=== PATIENT | male | born 1965 | race Caucasian/White ===

== ENCOUNTER 2017-04-14 16:45 | Inpatient (IN) | payer MEDICARE, OTHER ==
[~2017-04-14] VITALS: Ht 177.8 cm; Wt 72.8 kg
[~2017-04-14 16:45] MED LIST: DIGO250T4 PO; INSU100C10 SQ; LANTUS SQ; SPIR25TA3 PO
[2017-04-14] MEDS ORDERED: vancomycin/NS 1 GM ADD-VANTAGE 250 ML IV ONE (17:00)
[2017-04-14] MEDS ORDERED: normal saline 1000ML IV soln IV ONE (17:00)
[2017-04-14] MEDS ORDERED: CefTRIAXone 2gm/NS 100ml IVPB 100 ML IV ONE (17:00)
[2017-04-14 17:19] LABS: BASOPHILS % (AUTO) 0 % (0-1); EOSINOPHILS % (AUTO) 0 % (0-6); HEMATOCRIT 42.2 % (42.0-52.0); HEMOGLOBIN 13.6 g/dl (14.0-17.9); LYMPHOCYTES # (AUTO) 0.5 X10'3 (1.1-4.8); LYMPHOCYTES % (AUTO) 1.4 % (21-51); MEAN CORPUSCULAR HEMOGLOBIN 29.7 PG (27.0-31.0); MEAN CORPUSCULAR HGB CONC 32.2 % (33.0-36.5); MEAN CORPUSCULAR VOLUME 92.2 FL (78-98); MEAN PLATELET VOLUME 7.9 FL (7.4-10.4); MONOCYTES # (AUTO) 0.1 X10'3 (0-0.9); MONOCYTES % (AUTO) 0.3 % (2-12); NEUTROPHILS # (AUTO) 35.9 X10'3 (1.8-7.7); NEUTROPHILS % (AUTO) 98.3 % (42-75); PLATELET COUNT 567 X10'3 (140-440); RED BLOOD COUNT 4.58 X10'6 (4.70-6.10); RED CELL DISTRIBUTION WIDTH 14.4 % (11.5-14.5)
[2017-04-14 17:24] LABS: WHITE BLOOD COUNT 36.5 X10'3 (4.5-11.0)
[2017-04-14 17:29] LABS: INR 1.1 INR; PARTIAL THROMBOPLASTIN TIME 48 SECONDS (22-32); PROTHROMBIN TIME 11.7 SECONDS (9.0-12.0)
[2017-04-14 17:44] LABS: PLATELET ESTIMATE INCREASED; TOTAL CELLS COUNTED 100; TOXIC GRANULATION 1+; TOXIC VACUOLATION 1+
[2017-04-14 18:04] LABS: ALANINE AMINOTRANSFERASE 30 U/L (12-78); ALBUMIN/GLOBULIN RATIO 0.3 (1.1-1.5); ALKALINE PHOSPHATASE 211 IU/L (46-116); ANION GAP 29 (8-16); ASPARTATE AMINO TRANSFERASE 19 U/L (10-37); BILIRUBIN,TOTAL 0.5 MG/DL (0.1-1.0); BLOOD UREA NITROGEN 31 MG/DL (7-18); BUN/CREATININE RATIO 23.8 (5.4-32.0); CALCIUM 8.9 MG/DL (8.5-10.1); CHLORIDE 85 MMOL/L (99-107); MAGNESIUM 1.9 MG/DL (1.5-2.4); POTASSIUM 3.2 MMOL/L (3.5-5.1); SODIUM 122 MMOL/L (135-145); TOTAL PROTEIN 7.8 G/DL (6.4-8.2); eGFR 58 ML/MIN
[2017-04-14 18:08] LABS: GLUCOSE 562 MG/DL (70-104)
[2017-04-14 18:09] LABS: TOTAL CARBON DIOXIDE 8.4 MMOL/L (24-32)
[2017-04-14] MEDS ORDERED: iohexol 300mg/ml 100ml inj. ONE (18:13)
[2017-04-14] MEDS ORDERED: insulin regular, human 100 UNIT in normal saline 100ml IV soln 100 ML IV PRN ×2 (19:00)
[2017-04-14] MEDS ORDERED: potassium CL 20mEq in D5-1/2NS 1,000 ML IV PRN (19:19)
[2017-04-14] MEDS: normal saline 1000ml 1,000 ML IV SCH ×3 (19:19→23:00)
[2017-04-14] MEDS ORDERED: insulin regular, DKA only 100 UNIT in normal saline 100ml IV soln 99 ML IV SCH ×2 (19:19)
[2017-04-14] MEDS ORDERED: magnesium hydroxide 30ml (MOM) UD suspension PO PRN (19:20)
[2017-04-14] MEDS ORDERED: Neutra Phos packet PO PRN (19:20)
[2017-04-14] MEDS ORDERED: sodium phosphate inj. 15 MMOL in dextrose 5%-water 150 ML IV PRN (19:20)
[2017-04-14] MEDS ORDERED: mag hydrox/Alum hydrox/simeth 30ml oral suspension PO PRN (19:20)
[2017-04-14] MEDS ORDERED: sodium phosphate inj. 30 MMOL in dextrose 5%-water 250 ML IV PRN (19:20)
[2017-04-14] MEDS ORDERED: acetaminophen 325mg tablet PO PRN (19:20)
[2017-04-14] MEDS ORDERED: ondansetron/PF 4mg/2ml inj IV PRN ×2 (19:20→20:50)
[2017-04-14] MEDS ORDERED: magnesium 4gm in 100ml NS 100 ML IV PRN (19:20)
[2017-04-14] MEDS ORDERED: magnesium 2GM in 50ml NS 50 ML IV PRN (19:20)
[2017-04-14] MEDS: nicotine 14mg patch - 24hr TD SCH (19:20)
[2017-04-14] MEDS ORDERED: potassium Cl 20 mEq SR tablet PO PRN ×2 (19:20)
[2017-04-14] MEDS ORDERED: magnesium Cl slow-release 64mg tablet PO PRN (19:20)
[2017-04-14] MEDS ORDERED: potassium Cl 40MEQ/NS 500ml 500 ML IV PRN ×2 (19:20)
[2017-04-14] MEDS ORDERED: vancomycin 1,000mg inj ONE (19:37)
[2017-04-14] MEDS ORDERED: BUPIVAcaine/PF 2.5 mg/ml (0.25%) 30ml vial ONE (19:38)
[2017-04-14] MEDS ORDERED: LORazepam 2 mg/ml vial IV PRN (19:45)
[2017-04-14] MEDS ORDERED: CEFEPIME 1 GM in NORMAL SALINE 100ml IV.SOLN IV SCH (20:00)
[2017-04-14] MEDS ORDERED: cefepime 2gm inj IV SCH (20:00)
[2017-04-14] MEDS ORDERED: fentaNYL/PF 50MCG/1 ML 2ML syringe ONE ×2 (20:10→21:22)
[2017-04-14] MEDS ORDERED: potassium Cl 40MEQ/250ML bag 250 ML IV ONE (20:10)
[2017-04-14] MEDS ORDERED: propofol inj 20 ML IV ONE (20:11)
[2017-04-14] MEDS ORDERED: rocuronium 10mg/ml inj IV ONE (20:11)
[2017-04-14] MEDS ORDERED: sevoflurane 250ml liquid IH ONE (20:11)
[2017-04-14 20:21] LABS: ALBUMIN 1.4 G/DL (3.4-5.0); ANION GAP 26 (8-16); BLOOD UREA NITROGEN 28 MG/DL (7-18); BUN/CREATININE RATIO 25.5 (5.4-32.0); CALCIUM 7.2 MG/DL (8.5-10.1); CHLORIDE 94 MMOL/L (99-107); PHOSPHORUS 3.7 MG/DL (2.3-4.5); SODIUM 127 MMOL/L (135-145); eGFR 70 ML/MIN
[2017-04-14 20:28] LABS: GLUCOSE 483 MG/DL (70-104)
[2017-04-14] MEDS ORDERED: ePHEDrine 50MG/ML INJ. ONE (20:39)
[2017-04-14] MEDS ORDERED: normal saline 1000ml 1,000 ML IV ONE (20:46)
[2017-04-14] MEDS ORDERED: fentaNYL/PF 50MCG/1 ML 2ML syringe IV PRN ×2 (20:50→22:25)
[2017-04-14] MEDS ORDERED: temazepam 15mg capsule PO PRN (21:00)
[2017-04-14 22:05] VITALS: BP 106/61
[2017-04-14 22:15] VITALS: BP 119/67
[2017-04-14 22:25] VITALS: BP 124/69
[2017-04-14] MEDS ORDERED: midazolam 2 mg/2 ml injection IV ONE (22:25)
[2017-04-14 22:35] VITALS: BP 123/69
[2017-04-14 22:35] LABS: ISTAT ANION GAP 18 (8-12); ISTAT BUN 27 mg/dL (6-19); ISTAT CL 102 mmol/L (99-107); ISTAT CREATININE 0.5 mg/dL (0.8-1.3); ISTAT GLUCOSE 430 mg/dL (70-104); ISTAT HGB 12.2 g/dl (14.0-18.0); ISTAT Hct 36 %PCV (42-52); ISTAT IONIZED CALCIUM 1.21 mmol/L (1.03-1.32); ISTAT K 3.4 mmol/L (3.5-5.1); ISTAT NA 130 mmol/L (135-145); ISTAT eGFR > 90 ML/MIN
[2017-04-14 22:45] VITALS: BP_SYST 133; BP_SYST 95; BP_DIAS 58; BP_DIAS 70
[2017-04-14 22:45] LABS: ABG BASE EXCESS -25.9 mmol/L (-2.0-3.0); ABG HCO3 5.7 mmol/L (22.0-26.0); ABG OXYGEN SATURATION 99.1 % (95-98); ABG PCO2 (T) 26.6 mmHg (35.0-48.0); ABG PH (T) 6.935 (7.350-7.450); FCOHb 0.3 % (0.5-1.5); FMetHb 0.1 % (0.3-1.12); FO2Hb 98.7 % (94-100); MINUTE VOLUME 8 L/min; PATIENT TEMPERATURE 35.2; PEEP 5 cm H2O; RESPIRATORY RATE 12 b/min; RESPIRATORY RATE (OBSERVED) 15 b/min; TIDAL VOLUME 400 mL
[2017-04-14] MEDS: FENTANYL-0.9 % NACL/PF 100 ML IV PRN (22:48)
[2017-04-14] MEDS: midazolam 100mg in NS 100ml 100 ML IV PRN (22:49)
[2017-04-14 23:00] VITALS: BP 112/71
[2017-04-14] MEDS ORDERED: insulin Lispro (HumaLOG) vial - multi-dose SQ ONE (23:17)
[2017-04-14 23:31] LABS: ISTAT TOTAL CO2 10 mmol/L (24-32)
[2017-04-14 23:38] LABS: ISTAT TCO2 CONFIRMATION 9.7 mmol/l
[2017-04-15] VITALS (25 sets, daily range): BP systolic 76–134; BP diastolic 53–68
[2017-04-15] MEDS ORDERED: NORepinephrine 8mg/ 250ml NS 250 ML IV ONE (00:06)
[2017-04-15] MEDS: NORepinephrine 8mg/ 250ml NS 250 ML IV SCH ×3 (00:18→18:51)
[2017-04-15] MEDS: normal saline 1000ml 1,000 ML IV SCH ×10 (00:37→23:19)
[2017-04-15 02:46] LABS: BASOPHILS # (AUTO) 0.1 X10'3 (0-0.2); BASOPHILS % (AUTO) 0.5 % (0-1); EOSINOPHILS % (AUTO) 0 % (0-6); HEMATOCRIT 32.3 % (42.0-52.0); HEMOGLOBIN 10.6 g/dl (14.0-17.9); LYMPHOCYTES # (AUTO) 0.3 X10'3 (1.1-4.8); MEAN CORPUSCULAR HEMOGLOBIN 29.6 PG (27.0-31.0); MEAN CORPUSCULAR HGB CONC 32.7 % (33.0-36.5); MEAN CORPUSCULAR VOLUME 90.3 FL (78-98); MEAN PLATELET VOLUME 6.9 FL (7.4-10.4); MONOCYTES # (AUTO) 0.2 X10'3 (0-0.9); MONOCYTES % (AUTO) 0.8 % (2-12); NEUTROPHILS # (AUTO) 25.2 X10'3 (1.8-7.7); NEUTROPHILS % (AUTO) 97.7 % (42-75); PLATELET COUNT 483 X10'3 (140-440); RED BLOOD COUNT 3.57 X10'6 (4.70-6.10); RED CELL DISTRIBUTION WIDTH 13.8 % (11.5-14.5)
[2017-04-15 02:50] LABS: WHITE BLOOD COUNT 25.8 X10'3 (4.5-11.0)
[2017-04-15 03:02] LABS: ALANINE AMINOTRANSFERASE 18 U/L (12-78); ALBUMIN 1.3 G/DL (3.4-5.0); ALBUMIN/GLOBULIN RATIO 0.3 (1.1-1.5); ALKALINE PHOSPHATASE 143 IU/L (46-116); ANION GAP 18 (8-16); ASPARTATE AMINO TRANSFERASE 19 U/L (10-37); BILIRUBIN,TOTAL 0.3 MG/DL (0.1-1.0); BLOOD UREA NITROGEN 28 MG/DL (7-18); BUN/CREATININE RATIO 23.3 (5.4-32.0); CALCIUM 6.9 MG/DL (8.5-10.1); CHLORIDE 102 MMOL/L (99-107); GLUCOSE 235 MG/DL (70-104); MAGNESIUM 1.2 MG/DL (1.5-2.4); PHOSPHORUS 1.9 MG/DL (2.3-4.5); SODIUM 132 MMOL/L (135-145); TOTAL PROTEIN 5.3 G/DL (6.4-8.2); eGFR 64 ML/MIN
[2017-04-15 03:04] LABS: POTASSIUM 2.6 MMOL/L (3.5-5.1); TOTAL CARBON DIOXIDE 11.6 MMOL/L (24-32)
[2017-04-15] MEDS ORDERED: potassium Cl 40MEQ/250ML bag 250 ML IV PRN (03:10)
[2017-04-15] MEDS ORDERED: potassium Cl 40MEQ/250ML bag 500 ML IV ONE (03:17)
[2017-04-15] MEDS: potassium Cl 40MEQ/250ML bag 250 ML IV PRN ×4 (03:26→18:51)
[2017-04-15 03:31] LABS: ABG BASE EXCESS -15.3 mmol/L (-2.0-3.0); ABG HCO3 9.9 mmol/L (22.0-26.0); ABG OXYGEN SATURATION 98.2 % (95-98); ABG PH (T) 7.254 (7.350-7.450); ABG PO2 (T) 113.4 mmHg (83-108); FCOHb 0.3 % (0.5-1.5); FMetHb 0.3 % (0.3-1.12); FO2Hb 97.6 % (94-100); MINUTE VOLUME 14 L/min; PATIENT TEMPERATURE 37.5; PEEP 5 cm H2O; RESPIRATORY RATE 24 b/min; RESPIRATORY RATE (OBSERVED) 31 b/min; TIDAL VOLUME 400 mL; TOTAL HEMOGLOBIN 11.3 G/dl (14.0-18.0)
[2017-04-15] MEDS ORDERED: insulin R INFUSION 1 ML IV ONE (05:42)
[2017-04-15 07:13] LABS: BANDS% (MANUAL) 24 % (0-10); MONOCYTES % (MANUAL) 3 % (2-12); NEUTROPHILS % (MANUAL) 70 % (42-75); PLATELET ESTIMATE INCREASED; TOTAL CELLS COUNTED 100
[2017-04-15 07:14] LABS: BURR CELLS 2+; TOXIC VACUOLATION 1+
[2017-04-15 07:16] LABS: METAMYLEOCYTES% (MANUAL) 3 % (0-0)
[2017-04-15] MEDS: K and/or MAG REPLACEMENT MC SCH (08:00)
[2017-04-15] MEDS ORDERED: K and/or MAG REPLACEMENT MC SCH (08:00)
[2017-04-15] MEDS: nicotine 14mg patch - 24hr TD SCH (08:00)
[2017-04-15] MEDS: piperacillin/tazo 3.375gm/50ml 50 ML IV SCH ×3 (08:35→20:35)
[2017-04-15] MEDS: enoxaparin 40mg/0.4ml syringe SUBCUT SCH (09:05)
[2017-04-15] MEDS ORDERED: DEXTROSE 5% IV SCH ×2 (11:20→11:40)
[2017-04-15] MEDS ORDERED: NORMAL SALINE IV SCH ×2 (11:20→11:40)
[2017-04-15] MEDS ORDERED: SODIUM BICARBONATE IV SCH ×2 (11:20→11:40)
[2017-04-15] MEDS ORDERED: DEXTROSE 5% IV PRN (12:00)
[2017-04-15] MEDS ORDERED: 1/2 NORMAL SALINE IV PRN (12:00)
[2017-04-15] MEDS ORDERED: SODIUM BICARBONATE IV PRN (12:00)
[2017-04-15 12:23] LABS: HIV ANTIBODY 1&2 RAPID NON-REACTIVE (Neg)
[2017-04-15 12:32] LABS: PLATELET COUNT 469 X10'3 (140-440)
[2017-04-15 12:48] LABS: PHOSPHORUS 0.9 MG/DL (2.3-4.5)
[2017-04-15 12:49] LABS: D-DIMER 1.93 MG/L FEU (0-0.50); INR 1.1 INR; PARTIAL THROMBOPLASTIN TIME 38 SECONDS (22-32); PROTHROMBIN TIME 11.8 SECONDS (9.0-12.0)
[2017-04-15] MEDS: silver sulfadiazine cream 400gm jar TP SCH (13:00)
[2017-04-15 13:12] LABS: ALBUMIN 1.2 G/DL (3.4-5.0); ANION GAP 12 (8-16); BLOOD UREA NITROGEN 20 MG/DL (7-18); CALCIUM 7.5 MG/DL (8.5-10.1); CHLORIDE 109 MMOL/L (99-107); GLUCOSE 90 MG/DL (70-104); SODIUM 137 MMOL/L (135-145); eGFR 78 ML/MIN
[2017-04-15 13:14] LABS: POTASSIUM 2.9 MMOL/L (3.5-5.1)
[2017-04-15] MEDS: midazolam 100mg in NS 100ml 100 ML IV PRN (14:28)
[2017-04-15] MEDS: FENTANYL-0.9 % NACL/PF 100 ML IV PRN (14:29)
[2017-04-15] MEDS: sodium phosphate inj. 30 MMOL in dextrose 5%-water 250 ML IV PRN (15:27)
[2017-04-15] MEDS ORDERED: sodium bicarbonate (8.4%) inj. 150 MEQ in dextrose 5%-water 1,000 ML IV SCH (16:05)
[2017-04-15] MEDS: cefepime 1GM/NS ADD-VANTAGE 100 ML IV SCH ×2 (16:33→23:24)
[2017-04-15] MEDS: vancomycin/NS 1 GM ADD-VANTAGE 250 ML IV SCH (18:51)
[2017-04-15 20:08] LABS: ANION GAP 15 (8-16); BLOOD UREA NITROGEN 17 MG/DL (7-18); BUN/CREATININE RATIO 24.3 (5.4-32.0); CALCIUM 7.1 MG/DL (8.5-10.1); CHLORIDE 108 MMOL/L (99-107); GLUCOSE 341 MG/DL (70-104); POTASSIUM 3.9 MMOL/L (3.5-5.1); SODIUM 140 MMOL/L (135-145); TOTAL CARBON DIOXIDE 17.1 MMOL/L (24-32); eGFR > 90 ML/MIN
[2017-04-15] MEDS ORDERED: dextrose ORAL solution 15 GM/59 ML bottle PO PRN ×2 (21:05)
[2017-04-15] MEDS ORDERED: MESSAGE TO PHARMACY PO ONE ×2 (21:05→21:10)
[2017-04-15] MEDS ORDERED: glucagon, human recombinant 1mg kit SUBCUT PRN ×2 (21:05→21:10)
[2017-04-15] MEDS ORDERED: dextrose 50%-water 50ml dispensing syringe IV PRN ×4 (21:05→21:10)
[2017-04-15] MEDS: insulin Lispro (HumaLOG) vial - multi-dose SQ SCH (21:46)
[2017-04-15] MEDS: insulin glargine (Lantus) pen - multi-dose SQ SCH (21:47)
[2017-04-16] VITALS (23 sets, daily range): BP systolic 78–128; BP diastolic 42–67
[2017-04-16] MEDS: piperacillin/tazo 3.375gm/50ml 50 ML IV SCH ×4 (02:09→20:39)
[2017-04-16] MEDS: mineral oil/petrolatum ophthal oint EACHEYE SCH ×4 (02:09→20:39)
[2017-04-16] MEDS: insulin Lispro (HumaLOG) vial - multi-dose SQ SCH ×3 (02:17→13:48)
[2017-04-16 02:49] LABS: ALANINE AMINOTRANSFERASE 18 U/L (12-78); ALBUMIN/GLOBULIN RATIO 0.3 (1.1-1.5); ALKALINE PHOSPHATASE 118 IU/L (46-116); ANION GAP 11 (8-16); ASPARTATE AMINO TRANSFERASE 16 U/L (10-37); BASOPHILS % (AUTO) 0 % (0-1); BILIRUBIN,TOTAL 0.2 MG/DL (0.1-1.0); BLOOD UREA NITROGEN 17 MG/DL (7-18); BUN/CREATININE RATIO 21.3 (5.4-32.0); CALCIUM 6.8 MG/DL (8.5-10.1); CHLORIDE 108 MMOL/L (99-107); EOSINOPHILS % (AUTO) 0 % (0-6); GLUCOSE 380 MG/DL (70-104); HEMATOCRIT 28.6 % (42.0-52.0); HEMOGLOBIN 9.9 g/dl (14.0-17.9); LYMPHOCYTES # (AUTO) 0.5 X10'3 (1.1-4.8); LYMPHOCYTES % (AUTO) 2.4 % (21-51); MAGNESIUM 1.4 MG/DL (1.5-2.4); MEAN CORPUSCULAR HEMOGLOBIN 30.5 PG (27.0-31.0); MEAN CORPUSCULAR HGB CONC 34.6 % (33.0-36.5); MEAN CORPUSCULAR VOLUME 88.2 FL (78-98); MEAN PLATELET VOLUME 8.2 FL (7.4-10.4); MONOCYTES # (AUTO) 0.4 X10'3 (0-0.9); MONOCYTES % (AUTO) 1.7 % (2-12); NEUTROPHILS # (AUTO) 20.9 X10'3 (1.8-7.7); NEUTROPHILS % (AUTO) 95.9 % (42-75); PHOSPHORUS 2.1 MG/DL (2.3-4.5); PLATELET COUNT 425 X10'3 (140-440); RED BLOOD COUNT 3.24 X10'6 (4.70-6.10); SODIUM 142 MMOL/L (135-145); TOTAL CARBON DIOXIDE 22.8 MMOL/L (24-32); TOTAL PROTEIN 4.9 G/DL (6.4-8.2); WHITE BLOOD COUNT 21.8 X10'3 (4.5-11.0); eGFR > 90 ML/MIN
[2017-04-16 02:51] LABS: POTASSIUM 2.8 MMOL/L (3.5-5.1)
[2017-04-16] MEDS ORDERED: sodium bicarbonate (8.4%) inj. 100 MEQ in sodium chloride 0.45% 1,000 ML IV SCH (03:15)
[2017-04-16] MEDS: normal saline 1000ml 1,000 ML IV SCH ×8 (03:19→23:19)
[2017-04-16 03:30] LABS: ABG BASE EXCESS -4.2 mmol/L (-2.0-3.0); ABG HCO3 18.8 mmol/L (22.0-26.0); ABG PCO2 (T) 27.5 mmHg (35.0-48.0); ABG PH (T) 7.453 (7.350-7.450); ABG PO2 (T) 87.5 mmHg (83-108); FCOHb 0.3 % (0.5-1.5); FMetHb 0.3 % (0.3-1.12); FO2Hb 96.4 % (94-100); MINUTE VOLUME 11 L/min; PEEP 5 cm H2O; RESPIRATORY RATE 24 b/min; RESPIRATORY RATE (OBSERVED) 24 b/min; TIDAL VOLUME 400 mL; TOTAL HEMOGLOBIN 9.7 G/dl (14.0-18.0)
[2017-04-16] MEDS ORDERED: normal saline 500ml IV soln 500 ML IV ONE (03:30)
[2017-04-16] MEDS ORDERED: potassium Cl 40MEQ/250ML bag 250 ML IV ONE (03:41)
[2017-04-16] MEDS ORDERED: sodium bicarbonate 1 MEQ/1 ml inj ONE (03:42)
[2017-04-16] MEDS ORDERED: potassium Cl 20mEq/100mL bag 0 ML IV ONE (03:44)
[2017-04-16] MEDS: sodium phosphate inj. 15 MMOL in dextrose 5%-water 150 ML IV PRN (04:08)
[2017-04-16] MEDS: potassium Cl 40MEQ/250ML bag 250 ML IV PRN ×3 (04:09→21:35)
[2017-04-16] MEDS: K and/or MAG REPLACEMENT MC SCH (08:00)
[2017-04-16] MEDS: silver sulfadiazine cream 400gm jar TP SCH (09:04)
[2017-04-16] MEDS: sodium phosphate inj. 30 MMOL in dextrose 5%-water 250 ML IV PRN (09:06)
[2017-04-16] MEDS: nicotine 14mg patch - 24hr TD SCH (09:08)
[2017-04-16] MEDS: LACTOBACILLUS RHAMNOSUS GG 15 billion unit sprinkle caps PO SCH (09:08)
[2017-04-16] MEDS: enoxaparin 40mg/0.4ml syringe SUBCUT SCH (09:10)
[2017-04-16] MEDS ORDERED: DEXTROSE 5% IV SCH (11:40)
[2017-04-16] MEDS ORDERED: 1/2 NORMAL SALINE IV SCH (11:40)
[2017-04-16] MEDS ORDERED: SODIUM BICARBONATE IV SCH (11:40)
[2017-04-16] MEDS: metoclopramide 5 mg/ml inj IV SCH ×2 (13:29→20:39)
[2017-04-16] MEDS ORDERED: metoclopramide 5 mg/ml inj IV SCH (14:00)
[2017-04-16 14:32] LABS: ALBUMIN 0.9 G/DL (3.4-5.0); ANION GAP 8 (8-16); BLOOD UREA NITROGEN 13 MG/DL (7-18); BUN/CREATININE RATIO 21.7 (5.4-32.0); CALCIUM 6.8 MG/DL (8.5-10.1); CHLORIDE 110 MMOL/L (99-107); GLUCOSE 185 MG/DL (70-104); MAGNESIUM 2.4 MG/DL (1.5-2.4); PHOSPHORUS 5.1 MG/DL (2.3-4.5); POTASSIUM 3.7 MMOL/L (3.5-5.1); SODIUM 143 MMOL/L (135-145); TOTAL CARBON DIOXIDE 24.7 MMOL/L (24-32); eGFR > 90 ML/MIN
[2017-04-16] MEDS: vancomycin/NS 1 GM ADD-VANTAGE 250 ML IV SCH (17:33)
[2017-04-16] MEDS: NORepinephrine 8mg/ 250ml NS 250 ML IV SCH (19:32)
[2017-04-16] MEDS: insulin glargine (Lantus) pen - multi-dose SQ SCH (20:41)
[2017-04-17] VITALS (24 sets, daily range): BP systolic 89–156; BP diastolic 56–74
[2017-04-17] MEDS: FENTANYL-0.9 % NACL/PF 100 ML IV PRN (00:12)
[2017-04-17] MEDS: midazolam 100mg in NS 100ml 100 ML IV PRN (00:13)
[2017-04-17] MEDS: mineral oil/petrolatum ophthal oint EACHEYE SCH ×4 (02:02→19:54)
[2017-04-17] MEDS: metoclopramide 5 mg/ml inj IV SCH ×4 (02:02→19:54)
[2017-04-17] MEDS: piperacillin/tazo 3.375gm/50ml 50 ML IV SCH ×4 (02:02→19:54)
[2017-04-17] MEDS: normal saline 1000ml 1,000 ML IV SCH ×4 (02:03→16:11)
[2017-04-17 03:40] LABS: ABG BASE EXCESS 1.2 mmol/L (-2.0-3.0); ABG HCO3 23.9 mmol/L (22.0-26.0); ABG OXYGEN SATURATION 95.5 % (95-98); ABG PH (T) 7.516 (7.350-7.450); ABG PO2 (T) 70.2 mmHg (83-108); ALLEN'S TEST Positive; FCOHb 0.3 % (0.5-1.5); FMetHb 0.3 % (0.3-1.12); FO2Hb 94.9 % (94-100); MINUTE VOLUME 9 L/min; PATIENT TEMPERATURE 36.2; PEEP 5 cm H2O; RESPIRATORY RATE 20 b/min; RESPIRATORY RATE (OBSERVED) 20 b/min; TIDAL VOLUME 400 mL; TOTAL HEMOGLOBIN 10.2 G/dl (14.0-18.0)
[2017-04-17 03:52] LABS: BASOPHILS % (AUTO) 0 % (0-1); EOSINOPHILS # (AUTO) 0.3 X10'3 (0-0.9); EOSINOPHILS % (AUTO) 1.6 % (0-6); HEMATOCRIT 27.3 % (42.0-52.0); HEMOGLOBIN 9.2 g/dl (14.0-17.9); LYMPHOCYTES # (AUTO) 0.6 X10'3 (1.1-4.8); LYMPHOCYTES % (AUTO) 3.7 % (21-51); MEAN CORPUSCULAR HEMOGLOBIN 29.8 PG (27.0-31.0); MEAN CORPUSCULAR HGB CONC 33.7 % (33.0-36.5); MEAN CORPUSCULAR VOLUME 88.4 FL (78-98); MEAN PLATELET VOLUME 7.3 FL (7.4-10.4); MONOCYTES # (AUTO) 0.5 X10'3 (0-0.9); MONOCYTES % (AUTO) 2.7 % (2-12); NEUTROPHILS # (AUTO) 15.8 X10'3 (1.8-7.7); PLATELET COUNT 325 X10'3 (140-440); RED BLOOD COUNT 3.09 X10'6 (4.70-6.10); RED CELL DISTRIBUTION WIDTH 14.5 % (11.5-14.5); WHITE BLOOD COUNT 17.1 X10'3 (4.5-11.0)
[2017-04-17 04:21] LABS: ALANINE AMINOTRANSFERASE 18 U/L (12-78); ALBUMIN 0.9 G/DL (3.4-5.0); ALBUMIN/GLOBULIN RATIO 0.2 (1.1-1.5); ALKALINE PHOSPHATASE 106 IU/L (46-116); ANION GAP 8 (8-16); ASPARTATE AMINO TRANSFERASE 13 U/L (10-37); BILIRUBIN,TOTAL 0.2 MG/DL (0.1-1.0); BLOOD UREA NITROGEN 11 MG/DL (7-18); CALCIUM 6.8 MG/DL (8.5-10.1); CHLORIDE 112 MMOL/L (99-107); GLUCOSE 115 MG/DL (70-104); MAGNESIUM 2.1 MG/DL (1.5-2.4); PHOSPHORUS 2.1 MG/DL (2.3-4.5); POTASSIUM 3.2 MMOL/L (3.5-5.1); SODIUM 145 MMOL/L (135-145); TOTAL CARBON DIOXIDE 25.4 MMOL/L (24-32); eGFR > 90 ML/MIN
[2017-04-17 04:52] LABS: TOTAL CELLS COUNTED 100
[2017-04-17 04:53] LABS: ANISOCYTOSIS 1+; PLATELET ESTIMATE NORMAL; TOXIC GRANULATION 1+
[2017-04-17] MEDS: K and/or MAG REPLACEMENT MC SCH (08:00)
[2017-04-17] MEDS ORDERED: vancomycin/NS 1 GM ADD-VANTAGE 250 ML IV SCH (09:00)
[2017-04-17] MEDS: vancomycin inj 1,250 MG in normal saline 250ml IV soln 250 ML IV SCH ×2 (09:00→20:42)
[2017-04-17] MEDS: LACTOBACILLUS RHAMNOSUS GG 15 billion unit sprinkle caps PO SCH (09:08)
[2017-04-17] MEDS: enoxaparin 40mg/0.4ml syringe SUBCUT SCH (09:08)
[2017-04-17] MEDS: nicotine 14mg patch - 24hr TD SCH (09:09)
[2017-04-17] MEDS: NORepinephrine 8mg/ 250ml NS 250 ML IV SCH (09:13)
[2017-04-17] MEDS: silver sulfadiazine cream 400gm jar TP SCH (09:20)
[2017-04-17] MEDS ORDERED: hydrocortisone sod succ/PF 100mg/2ml inj. IV ONE (10:35)
[2017-04-17 13:57] LABS: ALBUMIN 0.8 G/DL (3.4-5.0); ANION GAP 7 (8-16); BLOOD UREA NITROGEN 11 MG/DL (7-18); CALCIUM 6.7 MG/DL (8.5-10.1); CHLORIDE 111 MMOL/L (99-107); GLUCOSE 112 MG/DL (70-104); MAGNESIUM 1.8 MG/DL (1.5-2.4); PHOSPHORUS 2.3 MG/DL (2.3-4.5); SODIUM 144 MMOL/L (135-145); TOTAL CARBON DIOXIDE 26.2 MMOL/L (24-32); eGFR > 90 ML/MIN
[2017-04-17 14:00] LABS: POTASSIUM 2.8 MMOL/L (3.5-5.1)
[2017-04-17] MEDS: hydrocortisone sod succ/PF 100mg/2ml inj. IV SCH ×2 (14:00→19:54)
[2017-04-17] MEDS ORDERED: VANCOMYCIN LEVEL IV ONE (16:30)
[2017-04-17] MEDS: insulin Lispro (HumaLOG) vial - multi-dose SQ SCH (20:01)
[2017-04-17] MEDS: insulin glargine (Lantus) pen - multi-dose SQ SCH (20:06)
[2017-04-17] MEDS: potassium Cl 40MEQ/250ML bag 250 ML IV PRN (20:07)
[2017-04-18] VITALS (24 sets, daily range): BP systolic 70–140; BP diastolic 48–78
[2017-04-18] MEDS: hydrocortisone sod succ/PF 100mg/2ml inj. IV SCH ×4 (01:51→20:25)
[2017-04-18] MEDS: metoclopramide 5 mg/ml inj IV SCH ×4 (01:51→20:25)
[2017-04-18] MEDS: piperacillin/tazo 3.375gm/50ml 50 ML IV SCH ×4 (01:52→20:26)
[2017-04-18] MEDS: mineral oil/petrolatum ophthal oint EACHEYE SCH ×4 (01:52→20:25)
[2017-04-18] MEDS: insulin Lispro (HumaLOG) vial - multi-dose SQ SCH (02:05)
[2017-04-18] MEDS: midazolam 100mg in NS 100ml 100 ML IV PRN (02:35)
[2017-04-18] MEDS: FENTANYL-0.9 % NACL/PF 100 ML IV PRN ×2 (02:35→23:18)
[2017-04-18] MEDS: normal saline 1000ml 1,000 ML IV SCH ×2 (02:36→17:09)
[2017-04-18] MEDS: NORepinephrine 8mg/ 250ml NS 250 ML IV SCH ×2 (02:38→22:25)
[2017-04-18 02:41] LABS: BASOPHILS % (AUTO) 0 % (0-1); EOSINOPHILS % (AUTO) 0 % (0-6); HEMATOCRIT 28.3 % (42.0-52.0); HEMOGLOBIN 9.4 g/dl (14.0-17.9); LYMPHOCYTES # (AUTO) 0.2 X10'3 (1.1-4.8); LYMPHOCYTES % (AUTO) 1.5 % (21-51); MEAN CORPUSCULAR HEMOGLOBIN 29.4 PG (27.0-31.0); MEAN CORPUSCULAR HGB CONC 33.1 % (33.0-36.5); MEAN CORPUSCULAR VOLUME 88.8 FL (78-98); MEAN PLATELET VOLUME 7.5 FL (7.4-10.4); MONOCYTES # (AUTO) 0.2 X10'3 (0-0.9); NEUTROPHILS # (AUTO) 16.4 X10'3 (1.8-7.7); NEUTROPHILS % (AUTO) 97.5 % (42-75); PLATELET COUNT 341 X10'3 (140-440); RED BLOOD COUNT 3.19 X10'6 (4.70-6.10); RED CELL DISTRIBUTION WIDTH 14.7 % (11.5-14.5); WHITE BLOOD COUNT 16.8 X10'3 (4.5-11.0)
[2017-04-18 02:58] LABS: ALANINE AMINOTRANSFERASE 17 U/L (12-78); ALBUMIN 0.9 G/DL (3.4-5.0); ALBUMIN/GLOBULIN RATIO 0.2 (1.1-1.5); ALKALINE PHOSPHATASE 123 IU/L (46-116); ASPARTATE AMINO TRANSFERASE 11 U/L (10-37); BILIRUBIN,TOTAL 0.3 MG/DL (0.1-1.0); BLOOD UREA NITROGEN 18 MG/DL (7-18); CALCIUM 7.3 MG/DL (8.5-10.1); CHLORIDE 109 MMOL/L (99-107); GLUCOSE 221 MG/DL (70-104); MAGNESIUM 1.9 MG/DL (1.5-2.4); PHOSPHORUS 2.5 MG/DL (2.3-4.5); POTASSIUM 3.6 MMOL/L (3.5-5.1); SODIUM 143 MMOL/L (135-145); TOTAL PROTEIN 5.5 G/DL (6.4-8.2); eGFR > 90 ML/MIN
[2017-04-18 03:06] LABS: ANION GAP 9 (8-16); TOTAL CARBON DIOXIDE 24.7 MMOL/L (24-32)
[2017-04-18 03:11] LABS: ABG BASE EXCESS -1.6 mmol/L (-2.0-3.0); ABG HCO3 22.1 mmol/L (22.0-26.0); ABG OXYGEN SATURATION 89.7 % (95-98); ABG PCO2 (T) 33.6 mmHg (35.0-48.0); ABG PH (T) 7.435 (7.350-7.450); ABG PO2 (T) 54.9 mmHg (83-108); ALLEN'S TEST Positive; FCOHb 0.3 % (0.5-1.5); FMetHb 0.3 % (0.3-1.12); FO2Hb 89.2 % (94-100); MINUTE VOLUME 9 L/min; PATIENT TEMPERATURE 36.7; PEEP 5 cm H2O; RESPIRATORY RATE 18 b/min; RESPIRATORY RATE (OBSERVED) 18 b/min; TIDAL VOLUME 400 mL; TOTAL HEMOGLOBIN 11.5 G/dl (14.0-18.0)
[2017-04-18 05:29] LABS: ANISOCYTOSIS 1+; PLATELET ESTIMATE NORMAL; TOTAL CELLS COUNTED 100; TOXIC GRANULATION 1+
[2017-04-18] MEDS: vancomycin inj 1,250 MG in normal saline 250ml IV soln 250 ML IV SCH ×2 (09:50→21:00)
[2017-04-18] MEDS: LACTOBACILLUS RHAMNOSUS GG 15 billion unit sprinkle caps PO SCH (09:51)
[2017-04-18] MEDS: silver sulfadiazine cream 400gm jar TP SCH (09:53)
[2017-04-18] MEDS: enoxaparin 40mg/0.4ml syringe SUBCUT SCH (09:53)
[2017-04-18] MEDS: nicotine 14mg patch - 24hr TD SCH (09:53)
[2017-04-18] MEDS: insulin regular, human vial - multi-dose SQ SCH ×3 (10:48→20:36)
[2017-04-18] MEDS ORDERED: VANCOMYCIN LEVEL IV ONE (20:30)
[2017-04-18] MEDS: insulin glargine (Lantus) pen - multi-dose SQ SCH (20:37)
[2017-04-19] VITALS (24 sets, daily range): BP systolic 77–128; BP diastolic 47–76
[2017-04-19] MEDS: hydrocortisone sod succ/PF 100mg/2ml inj. IV SCH ×4 (02:00→21:06)
[2017-04-19] MEDS: piperacillin/tazo 3.375gm/50ml 50 ML IV SCH ×4 (02:00→21:06)
[2017-04-19] MEDS: mineral oil/petrolatum ophthal oint EACHEYE SCH ×4 (02:00→21:07)
[2017-04-19] MEDS: metoclopramide 5 mg/ml inj IV SCH ×4 (02:02→21:06)
[2017-04-19] MEDS: insulin regular, human vial - multi-dose SQ SCH ×4 (02:15→21:52)
[2017-04-19 02:20] LABS: BASOPHILS % (AUTO) 0 % (0-1); EOSINOPHILS # (AUTO) 0.2 X10'3 (0-0.9); EOSINOPHILS % (AUTO) 1.4 % (0-6); HEMATOCRIT 28.4 % (42.0-52.0); HEMOGLOBIN 9.4 g/dl (14.0-17.9); LYMPHOCYTES # (AUTO) 0.4 X10'3 (1.1-4.8); LYMPHOCYTES % (AUTO) 2.1 % (21-51); MEAN CORPUSCULAR HEMOGLOBIN 29.6 PG (27.0-31.0); MEAN CORPUSCULAR HGB CONC 33.2 % (33.0-36.5); MEAN CORPUSCULAR VOLUME 89.2 FL (78-98); MEAN PLATELET VOLUME 7.3 FL (7.4-10.4); MONOCYTES # (AUTO) 0.3 X10'3 (0-0.9); MONOCYTES % (AUTO) 1.9 % (2-12); NEUTROPHILS # (AUTO) 16.7 X10'3 (1.8-7.7); NEUTROPHILS % (AUTO) 94.6 % (42-75); PLATELET COUNT 446 X10'3 (140-440); RED BLOOD COUNT 3.19 X10'6 (4.70-6.10); RED CELL DISTRIBUTION WIDTH 14.4 % (11.5-14.5); WHITE BLOOD COUNT 17.6 X10'3 (4.5-11.0)
[2017-04-19] MEDS: normal saline 1000ml 1,000 ML IV SCH ×2 (02:22→22:30)
[2017-04-19 02:35] LABS: ALANINE AMINOTRANSFERASE 21 U/L (12-78); ALBUMIN 0.9 G/DL (3.4-5.0); ALBUMIN/GLOBULIN RATIO 0.2 (1.1-1.5); ALKALINE PHOSPHATASE 121 IU/L (46-116); ANION GAP 7 (8-16); ASPARTATE AMINO TRANSFERASE 21 U/L (10-37); BILIRUBIN,TOTAL 0.2 MG/DL (0.1-1.0); BLOOD UREA NITROGEN 26 MG/DL (7-18); BUN/CREATININE RATIO 43.3 (5.4-32.0); CALCIUM 7.6 MG/DL (8.5-10.1); CHLORIDE 113 MMOL/L (99-107); GLUCOSE 114 MG/DL (70-104); MAGNESIUM 1.9 MG/DL (1.5-2.4); PHOSPHORUS 1.9 MG/DL (2.3-4.5); POTASSIUM 3.3 MMOL/L (3.5-5.1); PREALBUMIN 6.4 MG/DL (19-36); SODIUM 147 MMOL/L (135-145); TOTAL CARBON DIOXIDE 26.8 MMOL/L (24-32); TOTAL PROTEIN 5.8 G/DL (6.4-8.2); eGFR > 90 ML/MIN
[2017-04-19 03:01] LABS: ABG BASE EXCESS -0.6 mmol/L (-2.0-3.0); ABG HCO3 22.2 mmol/L (22.0-26.0); ABG OXYGEN SATURATION 97.4 % (95-98); ABG PCO2 (T) 31.2 mmHg (35.0-48.0); ABG PH (T) 7.472 (7.350-7.450); ABG PO2 (T) 103.2 mmHg (83-108); ALLEN'S TEST Positive; FCOHb 0.1 % (0.5-1.5); FMetHb 0.3 % (0.3-1.12); MINUTE VOLUME 8 L/min; PATIENT TEMPERATURE 37.2; PEEP 5 cm H2O; RESPIRATORY RATE 18 b/min; RESPIRATORY RATE (OBSERVED) 18 b/min; TIDAL VOLUME 400 mL; TOTAL HEMOGLOBIN 11.6 G/dl (14.0-18.0)
[2017-04-19] MEDS ORDERED: potassium Cl 40MEQ/250ML bag 250 ML IV ONE (03:09)
[2017-04-19] MEDS: sodium phosphate inj. 15 MMOL in dextrose 5%-water 150 ML IV PRN (03:33)
[2017-04-19 03:36] LABS: ANISOCYTOSIS 1+; PLATELET ESTIMATE NORMAL; TARGET CELLS FEW; TOTAL CELLS COUNTED 100
[2017-04-19] MEDS: LACTOBACILLUS RHAMNOSUS GG 15 billion unit sprinkle caps PO SCH (07:30)
[2017-04-19] MEDS: vancomycin/NS 1 GM ADD-VANTAGE 250 ML IV SCH ×2 (08:39→22:37)
[2017-04-19] MEDS: enoxaparin 40mg/0.4ml syringe SUBCUT SCH (08:39)
[2017-04-19] MEDS: nicotine 14mg patch - 24hr TD SCH (08:40)
[2017-04-19] MEDS: silver sulfadiazine cream 400gm jar TP SCH (08:40)
[2017-04-19] MEDS: pantoprazole 40 MG vial IV SCH (12:49)
[2017-04-19] MEDS: midazolam 100mg in NS 100ml 100 ML IV PRN (13:33)
[2017-04-19] MEDS: FENTANYL-0.9 % NACL/PF 100 ML IV PRN (21:06)
[2017-04-19] MEDS: chlorhexidine gluconate 15ml Cup****oral rinse MM SCH (21:06)
[2017-04-19] MEDS: insulin glargine (Lantus) pen - multi-dose SQ SCH (21:53)
[2017-04-20] VITALS (24 sets, daily range): BP systolic 90–140; BP diastolic 47–78
[2017-04-20] MEDS: mineral oil/petrolatum ophthal oint EACHEYE SCH ×4 (02:00→20:00)
[2017-04-20] MEDS: metoclopramide 5 mg/ml inj IV SCH ×4 (02:00→20:00)
[2017-04-20] MEDS: hydrocortisone sod succ/PF 100mg/2ml inj. IV SCH ×4 (02:00→20:36)
[2017-04-20] MEDS: NORepinephrine 8mg/ 250ml NS 250 ML IV SCH (02:01)
[2017-04-20] MEDS: piperacillin/tazo 3.375gm/50ml 50 ML IV SCH ×4 (02:03→20:36)
[2017-04-20] MEDS: insulin regular, human vial - multi-dose SQ SCH ×2 (02:08→08:42)
[2017-04-20 03:12] LABS: BASOPHILS % (AUTO) 0 % (0-1); EOSINOPHILS % (AUTO) 0 % (0-6); HEMATOCRIT 26.8 % (42.0-52.0); HEMOGLOBIN 8.9 g/dl (14.0-17.9); LYMPHOCYTES # (AUTO) 0.4 X10'3 (1.1-4.8); LYMPHOCYTES % (AUTO) 2.7 % (21-51); MEAN CORPUSCULAR HEMOGLOBIN 29.3 PG (27.0-31.0); MEAN CORPUSCULAR HGB CONC 33.2 % (33.0-36.5); MEAN CORPUSCULAR VOLUME 88.5 FL (78-98); MEAN PLATELET VOLUME 7.3 FL (7.4-10.4); MONOCYTES # (AUTO) 0.3 X10'3 (0-0.9); MONOCYTES % (AUTO) 1.9 % (2-12); NEUTROPHILS # (AUTO) 12.8 X10'3 (1.8-7.7); NEUTROPHILS % (AUTO) 95.4 % (42-75); PLATELET COUNT 556 X10'3 (140-440); RED BLOOD COUNT 3.03 X10'6 (4.70-6.10); WHITE BLOOD COUNT 13.5 X10'3 (4.5-11.0)
[2017-04-20 03:20] LABS: ABG BASE EXCESS 2.6 mmol/L (-2.0-3.0); ABG HCO3 25.9 mmol/L (22.0-26.0); ABG OXYGEN SATURATION 95.8 % (95-98); ABG PCO2 (T) 34.5 mmHg (35.0-48.0); ABG PH (T) 7.492 (7.350-7.450); ALLEN'S TEST Positive; FCOHb 0.3 % (0.5-1.5); FMetHb 0.3 % (0.3-1.12); FO2Hb 95.2 % (94-100); MINUTE VOLUME 11 L/min; PATIENT TEMPERATURE 36.9; PEEP 5 cm H2O; RESPIRATORY RATE 16 b/min; RESPIRATORY RATE (OBSERVED) 18 b/min; TIDAL VOLUME 400 mL; TOTAL HEMOGLOBIN 9.8 G/dl (14.0-18.0)
[2017-04-20 03:25] LABS: ALBUMIN 0.9 G/DL (3.4-5.0); ANION GAP 6 (8-16); BLOOD UREA NITROGEN 27 MG/DL (7-18); CALCIUM 7.5 MG/DL (8.5-10.1); CHLORIDE 113 MMOL/L (99-107); GLUCOSE 194 MG/DL (70-104); SODIUM 148 MMOL/L (135-145); eGFR > 90 ML/MIN
[2017-04-20 03:29] LABS: POTASSIUM 2.5 MMOL/L (3.5-5.1)
[2017-04-20] MEDS ORDERED: potassium Cl 40MEQ/250ML bag 500 ML IV ONE ×2 (03:41→22:53)
[2017-04-20] MEDS: potassium Cl 40MEQ/250ML bag 250 ML IV PRN ×2 (03:44→23:32)
[2017-04-20] MEDS: midazolam 100mg in NS 100ml 100 ML IV PRN (03:52)
[2017-04-20] MEDS: pantoprazole 40 MG vial IV SCH (08:20)
[2017-04-20] MEDS: chlorhexidine gluconate 15ml Cup****oral rinse MM SCH ×2 (08:20→21:09)
[2017-04-20] MEDS: enoxaparin 40mg/0.4ml syringe SUBCUT SCH (08:21)
[2017-04-20] MEDS: nicotine 14mg patch - 24hr TD SCH (08:22)
[2017-04-20] MEDS: vancomycin/NS 1 GM ADD-VANTAGE 250 ML IV SCH ×2 (08:23→21:45)
[2017-04-20] MEDS: LACTOBACILLUS RHAMNOSUS GG 15 billion unit sprinkle caps PO SCH (08:24)
[2017-04-20] MEDS: silver sulfadiazine cream 400gm jar TP SCH (08:24)
[2017-04-20] MEDS ORDERED: ziprasidone IM 20mg inj **IM only IM ONE (08:40)
[2017-04-20] MEDS ORDERED: ziprasidone IM 20mg inj **IM only IM PRN (09:45)
[2017-04-20] MEDS: normal saline 1000ml 1,000 ML IV SCH ×2 (10:51→18:57)
[2017-04-20] MEDS: HYDROcodone/acetaminophen 10/325mg tab PO PRN (19:45)
[2017-04-20] MEDS ORDERED: VANCOMYCIN LEVEL IV NR (20:30)
[2017-04-20 20:57] LABS: VANCOMYCIN,TROUGH 10.7 UG/ML (6.0-14.0)
[2017-04-20] MEDS: insulin glargine (Lantus) pen - multi-dose SQ SCH (21:08)
[2017-04-20] MEDS: insulin Lispro (HumaLOG) vial - multi-dose SQ SCH (21:37)
[2017-04-20 22:44] LABS: MAGNESIUM 1.4 MG/DL (1.5-2.4)
[2017-04-20 22:49] LABS: POTASSIUM 2.1 MMOL/L (3.5-5.1)
[2017-04-20] MEDS ORDERED: magnesium 4gm in 100ml NS 100 ML IV PRN (23:00)
[2017-04-20] MEDS ORDERED: magnesium 2GM in 50ml NS 50 ML IV PRN (23:00)
[2017-04-20] MEDS ORDERED: magnesium Cl slow-release 64mg tablet PO PRN (23:00)
[2017-04-21] VITALS (22 sets, daily range): BP systolic 82–107; BP diastolic 33–75
[2017-04-21] MEDS: HYDROcodone/acetaminophen 10/325mg tab PO PRN (00:07)
[2017-04-21] MEDS: dextrose ORAL solution 15 GM/59 ML bottle PO PRN ×2 (01:42→02:01)
[2017-04-21] MEDS: metoclopramide 5 mg/ml inj IV SCH (02:00)
[2017-04-21] MEDS: mineral oil/petrolatum ophthal oint EACHEYE SCH ×4 (02:00→20:00)
[2017-04-21] MEDS: hydrocortisone sod succ/PF 100mg/2ml inj. IV SCH ×2 (02:01→20:24)
[2017-04-21] MEDS: piperacillin/tazo 3.375gm/50ml 50 ML IV SCH ×4 (02:01→20:24)
[2017-04-21] MEDS: potassium Cl 40MEQ/250ML bag 250 ML IV PRN ×2 (03:06→21:48)
[2017-04-21] MEDS: silver sulfadiazine cream 400gm jar TP SCH (08:00)
[2017-04-21] MEDS: chlorhexidine gluconate 15ml Cup****oral rinse MM SCH (08:00)
[2017-04-21] MEDS: nicotine 14mg patch - 24hr TD SCH ×2 (08:22→09:36)
[2017-04-21] MEDS: LACTOBACILLUS RHAMNOSUS GG 15 billion unit sprinkle caps PO SCH (09:35)
[2017-04-21] MEDS: enoxaparin 40mg/0.4ml syringe SUBCUT SCH (09:39)
[2017-04-21 14:15] LABS: BASOPHILS % (AUTO) 0.1 % (0-1); EOSINOPHILS # (AUTO) 0.1 X10'3 (0-0.9); HEMATOCRIT 26.6 % (42.0-52.0); LYMPHOCYTES # (AUTO) 0.7 X10'3 (1.1-4.8); LYMPHOCYTES % (AUTO) 7.2 % (21-51); MEAN CORPUSCULAR HEMOGLOBIN 30.1 PG (27.0-31.0); MEAN CORPUSCULAR VOLUME 88.3 FL (78-98); MEAN PLATELET VOLUME 7.2 FL (7.4-10.4); MONOCYTES # (AUTO) 0.4 X10'3 (0-0.9); MONOCYTES % (AUTO) 4.3 % (2-12); NEUTROPHILS # (AUTO) 8.1 X10'3 (1.8-7.7); NEUTROPHILS % (AUTO) 87.4 % (42-75); PLATELET COUNT 640 X10'3 (140-440); RED BLOOD COUNT 3.01 X10'6 (4.70-6.10); RED CELL DISTRIBUTION WIDTH 14.5 % (11.5-14.5); WHITE BLOOD COUNT 9.3 X10'3 (4.5-11.0)
[2017-04-21] MEDS ORDERED: iohexol 300mg/ml 100ml inj. ONE (14:53)
[2017-04-21] MEDS ORDERED: potassium Cl 20mEq/100mL bag 100 ML IV ONE (15:56)
[2017-04-21 16:27] LABS: ALANINE AMINOTRANSFERASE 11 U/L (12-78); ALBUMIN 0.6 G/DL (3.4-5.0); ALBUMIN/GLOBULIN RATIO 0.2 (1.1-1.5); ALKALINE PHOSPHATASE 74 IU/L (46-116); ANION GAP 15 (8-16); ASPARTATE AMINO TRANSFERASE 11 U/L (10-37); BILIRUBIN,TOTAL 0.2 MG/DL (0.1-1.0); BLOOD UREA NITROGEN 8 MG/DL (7-18); CHLORIDE 111 MMOL/L (99-107); GLUCOSE 225 MG/DL (70-104); SODIUM 149 MMOL/L (135-145); TOTAL CARBON DIOXIDE 22.8 MMOL/L (24-32); TOTAL PROTEIN 3.9 G/DL (6.4-8.2); eGFR > 90 ML/MIN
[2017-04-21 16:39] LABS: POTASSIUM 1.4 MMOL/L (3.5-5.1)
[2017-04-21 16:40] LABS: CALCIUM < 5.0 MG/DL (8.5-10.1); MAGNESIUM 0.8 MG/DL (1.5-2.4)
[2017-04-21 20:00] LABS: ALANINE AMINOTRANSFERASE 23 U/L (12-78); ALBUMIN 1.2 G/DL (3.4-5.0); ALBUMIN/GLOBULIN RATIO 0.3 (1.1-1.5); ALKALINE PHOSPHATASE 132 IU/L (46-116); ANION GAP 3 (8-16); ASPARTATE AMINO TRANSFERASE 22 U/L (10-37); BILIRUBIN,TOTAL 0.3 MG/DL (0.1-1.0); BLOOD UREA NITROGEN 10 MG/DL (7-18); BUN/CREATININE RATIO 16.7 (5.4-32.0); CALCIUM 7.3 MG/DL (8.5-10.1); CHLORIDE 103 MMOL/L (99-107); GLUCOSE 374 MG/DL (70-104); MAGNESIUM 2.2 MG/DL (1.5-2.4); SODIUM 140 MMOL/L (135-145); TOTAL CARBON DIOXIDE 33.7 MMOL/L (24-32); TOTAL PROTEIN 5.6 G/DL (6.4-8.2); eGFR > 90 ML/MIN
[2017-04-21 20:02] LABS: POTASSIUM 2.7 MMOL/L (3.5-5.1)
[2017-04-21] MEDS: insulin Lispro (HumaLOG) vial - multi-dose SQ SCH (20:42)
[2017-04-21] MEDS: insulin glargine (Lantus) pen - multi-dose SQ SCH ×2 (20:43→21:00)
[2017-04-22] VITALS (14 sets, daily range): BP systolic 95–123; BP diastolic 57–77
[2017-04-22] MEDS: mineral oil/petrolatum ophthal oint EACHEYE SCH ×4 (02:00→19:43)
[2017-04-22] MEDS: piperacillin/tazo 3.375gm/50ml 50 ML IV SCH ×4 (03:05→19:34)
[2017-04-22 04:08] LABS: BASOPHILS % (AUTO) 0 % (0-1); EOSINOPHILS # (AUTO) 0.1 X10'3 (0-0.9); EOSINOPHILS % (AUTO) 1.1 % (0-6); HEMATOCRIT 27.3 % (42.0-52.0); HEMOGLOBIN 9.2 g/dl (14.0-17.9); LYMPHOCYTES # (AUTO) 0.6 X10'3 (1.1-4.8); LYMPHOCYTES % (AUTO) 6.2 % (21-51); MEAN CORPUSCULAR HEMOGLOBIN 29.8 PG (27.0-31.0); MEAN CORPUSCULAR HGB CONC 33.7 % (33.0-36.5); MEAN CORPUSCULAR VOLUME 88.5 FL (78-98); MEAN PLATELET VOLUME 7.1 FL (7.4-10.4); MONOCYTES # (AUTO) 0.6 X10'3 (0-0.9); MONOCYTES % (AUTO) 5.7 % (2-12); PLATELET COUNT 744 X10'3 (140-440); RED BLOOD COUNT 3.08 X10'6 (4.70-6.10); RED CELL DISTRIBUTION WIDTH 14.4 % (11.5-14.5); WHITE BLOOD COUNT 10.3 X10'3 (4.5-11.0)
[2017-04-22 04:30] LABS: ALANINE AMINOTRANSFERASE 25 U/L (12-78); ALBUMIN 1.1 G/DL (3.4-5.0); ALBUMIN/GLOBULIN RATIO 0.3 (1.1-1.5); ALKALINE PHOSPHATASE 131 IU/L (46-116); ANION GAP 5 (8-16); ASPARTATE AMINO TRANSFERASE 26 U/L (10-37); BILIRUBIN,TOTAL 0.2 MG/DL (0.1-1.0); BLOOD UREA NITROGEN 13 MG/DL (7-18); BUN/CREATININE RATIO 21.7 (5.4-32.0); CALCIUM 7.2 MG/DL (8.5-10.1); CHLORIDE 107 MMOL/L (99-107); GLUCOSE 212 MG/DL (70-104); MAGNESIUM 1.9 MG/DL (1.5-2.4); PREALBUMIN 12.6 MG/DL (19-36); SODIUM 144 MMOL/L (135-145); TOTAL CARBON DIOXIDE 32.3 MMOL/L (24-32); TOTAL PROTEIN 5.2 G/DL (6.4-8.2); eGFR > 90 ML/MIN
[2017-04-22 04:34] LABS: POTASSIUM 2.4 MMOL/L (3.5-5.1)
[2017-04-22] MEDS: potassium Cl 40MEQ/250ML bag 250 ML IV PRN (04:39)
[2017-04-22] MEDS: LACTOBACILLUS RHAMNOSUS GG 15 billion unit sprinkle caps PO SCH (08:23)
[2017-04-22] MEDS: enoxaparin 40mg/0.4ml syringe SUBCUT SCH (08:28)
[2017-04-22] MEDS: spironolactone 25 MG tablet PO SCH (08:29)
[2017-04-22] MEDS: hydrocortisone sod succ/PF 100mg/2ml inj. IV SCH ×2 (08:33→19:34)
[2017-04-22] MEDS: pantoprazole 40mg Tablet.DR PO SCH (08:34)
[2017-04-22] MEDS: digoxin 250mcg (0.25mg) tablet PO SCH (08:35)
[2017-04-22] MEDS: nicotine 14mg patch - 24hr TD SCH (08:37)
[2017-04-22] MEDS: silver sulfadiazine cream 400gm jar TP SCH (08:43)
[2017-04-22] MEDS: insulin Lispro (HumaLOG) vial - multi-dose SQ SCH ×3 (10:18→19:30)
[2017-04-22] MEDS ORDERED: POTASSIUM 40MEQ/500ML NS ***PERIPHERAL LINE REPLACE IV PRN (11:05)
[2017-04-22 11:22] LABS: OCCULT BLOOD STOOL POSITIVE (Neg)
[2017-04-22] MEDS ORDERED: potassium Cl 40MEQ/NS 500ml 500 ML IV PRN ×2 (11:45)
[2017-04-22] MEDS ORDERED: potassium Cl 20 mEq SR tablet PO PRN (11:45)
[2017-04-22] MEDS: potassium Cl 20 mEq SR tablet PO PRN ×3 (12:02→20:40)
[2017-04-22] MEDS ORDERED: potassium Cl 20 mEq SR tablet PO STA (19:54)
[2017-04-22] MEDS: insulin glargine (Lantus) pen - multi-dose SQ SCH ×2 (21:00)
[2017-04-22] MEDS ORDERED: VANCOMYCIN LEVEL IV NR (21:30)
[2017-04-23] MEDS: potassium Cl 20 mEq SR tablet PO SCH ×2 (00:37→22:10)
[2017-04-23] MEDS: potassium Cl 20 mEq SR tablet PO PRN ×2 (00:38→04:39)
[2017-04-23] MEDS: mineral oil/petrolatum ophthal oint EACHEYE SCH (02:00)
[2017-04-23] MEDS: piperacillin/tazo 3.375gm/50ml 50 ML IV SCH ×4 (02:14→19:51)
[2017-04-23 06:00] VITALS: BP 113/68
[2017-04-23] MEDS: LACTOBACILLUS RHAMNOSUS GG 15 billion unit sprinkle caps PO SCH (07:42)
[2017-04-23] MEDS: digoxin 250mcg (0.25mg) tablet PO SCH (07:42)
[2017-04-23] MEDS: pantoprazole 40mg Tablet.DR PO SCH (07:42)
[2017-04-23] MEDS: nicotine 14mg patch - 24hr TD SCH (07:43)
[2017-04-23] MEDS: spironolactone 25 MG tablet PO SCH (07:43)
[2017-04-23] MEDS: hydrocortisone sod succ/PF 100mg/2ml inj. IV SCH ×2 (07:44→19:51)
[2017-04-23] MEDS: silver sulfadiazine cream 400gm jar TP SCH (07:44)
[2017-04-23] MEDS: enoxaparin 40mg/0.4ml syringe SUBCUT SCH (07:44)
[2017-04-23 08:34] LABS: BASOPHILS % (AUTO) 0.1 % (0-1); EOSINOPHILS % (AUTO) 0 % (0-6); HEMATOCRIT 34.6 % (42.0-52.0); HEMOGLOBIN 11.8 g/dl (14.0-17.9); LYMPHOCYTES # (AUTO) 0.9 X10'3 (1.1-4.8); LYMPHOCYTES % (AUTO) 6.7 % (21-51); MEAN CORPUSCULAR HEMOGLOBIN 30.1 PG (27.0-31.0); MEAN CORPUSCULAR HGB CONC 34.2 % (33.0-36.5); MEAN CORPUSCULAR VOLUME 88.1 FL (78-98); MEAN PLATELET VOLUME 7.2 FL (7.4-10.4); MONOCYTES # (AUTO) 0.2 X10'3 (0-0.9); MONOCYTES % (AUTO) 1.4 % (2-12); NEUTROPHILS # (AUTO) 12.7 X10'3 (1.8-7.7); NEUTROPHILS % (AUTO) 91.8 % (42-75); PLATELET COUNT 869 X10'3 (140-440); RED BLOOD COUNT 3.93 X10'6 (4.70-6.10); RED CELL DISTRIBUTION WIDTH 14.4 % (11.5-14.5); WHITE BLOOD COUNT 13.9 X10'3 (4.5-11.0)
[2017-04-23 08:52] LABS: ALBUMIN 1.7 G/DL (3.4-5.0); ANION GAP 4 (8-16); BLOOD UREA NITROGEN 14 MG/DL (7-18); BUN/CREATININE RATIO 17.5 (5.4-32.0); CALCIUM 8.2 MG/DL (8.5-10.1); CHLORIDE 103 MMOL/L (99-107); GLUCOSE 302 MG/DL (70-104); MAGNESIUM 1.6 MG/DL (1.5-2.4); POTASSIUM 4.6 MMOL/L (3.5-5.1); SODIUM 139 MMOL/L (135-145); TOTAL CARBON DIOXIDE 32.2 MMOL/L (24-32); eGFR > 90 ML/MIN
[2017-04-23] MEDS: insulin Lispro (HumaLOG) vial - multi-dose SQ SCH ×3 (09:02→19:42)
[2017-04-23 11:03] VITALS: BP 107/68
[2017-04-23 18:00] VITALS: BP 125/78
[2017-04-23] MEDS: insulin glargine (Lantus) pen - multi-dose SQ SCH ×2 (21:00→21:35)
[2017-04-23 22:00] VITALS: BP 122/74
[2017-04-24] VITALS (17 sets, daily range): BP systolic 92–118; BP diastolic 55–77
[2017-04-24] MEDS: piperacillin/tazo 3.375gm/50ml 50 ML IV SCH ×4 (01:55→19:57)
[2017-04-24] MEDS: dextrose ORAL solution 15 GM/59 ML bottle PO PRN (07:26)
[2017-04-24] MEDS: LACTOBACILLUS RHAMNOSUS GG 15 billion unit sprinkle caps PO SCH (07:29)
[2017-04-24] MEDS: digoxin 250mcg (0.25mg) tablet PO SCH (07:29)
[2017-04-24] MEDS: pantoprazole 40mg Tablet.DR PO SCH (07:29)
[2017-04-24] MEDS: hydrocortisone sod succ/PF 100mg/2ml inj. IV SCH ×2 (07:30→19:57)
[2017-04-24] MEDS: nicotine 14mg patch - 24hr TD SCH (07:30)
[2017-04-24] MEDS: enoxaparin 40mg/0.4ml syringe SUBCUT SCH (07:51)
[2017-04-24] MEDS: silver sulfadiazine cream 400gm jar TP SCH (08:00)
[2017-04-24] MEDS: spironolactone 25 MG tablet PO SCH (09:08)
[2017-04-24] MEDS ORDERED: ringers solution, lacted 1,000 ML IV SCH (09:09)
[2017-04-24] MEDS ORDERED: proCHLORperazine 10 MG/2 ml inj IV PRN (09:10)
[2017-04-24] MEDS ORDERED: ondansetron/PF 4mg/2ml inj IV PRN (09:10)
[2017-04-24] MEDS ORDERED: morphine 2 MG/ML inj. syringe IV PRN ×2 (09:10)
[2017-04-24] MEDS ORDERED: meperidine/PF 25mg/ml syringe IV PRN ×2 (09:10)
[2017-04-24] MEDS ORDERED: sevoflurane 250ml liquid IH ONE (09:46)
[2017-04-24] MEDS ORDERED: midazolam 2 mg/2 ml injection ONE (09:54)
[2017-04-24] MEDS ORDERED: fentaNYL/PF 50MCG/1 ML 2ML syringe ONE (09:54)
[2017-04-24] MEDS ORDERED: LIDOcaine 1%/PF (10mg/ml) 5ml vial ONE (09:57)
[2017-04-24] MEDS ORDERED: propofol inj 20 ML IV ONE (09:57)
[2017-04-24] MEDS: meperidine/PF 25mg/ml syringe IV PRN ×2 (11:27→11:46)
[2017-04-24] MEDS: morphine 2 MG/ML inj. syringe IV PRN ×2 (14:30→20:12)
[2017-04-24] MEDS: insulin Lispro (HumaLOG) vial - multi-dose SQ SCH (19:14)
[2017-04-24] MEDS: insulin glargine (Lantus) pen - multi-dose SQ SCH ×2 (21:00→21:37)
[2017-04-25] MEDS: potassium Cl 20 mEq SR tablet PO SCH
[2017-04-25 02:00] VITALS: BP 107/65
[2017-04-25] MEDS: piperacillin/tazo 3.375gm/50ml 50 ML IV SCH ×4 (02:34→20:46)
[2017-04-25 06:00] VITALS: BP 107/57
[2017-04-25] MEDS: silver sulfadiazine cream 400gm jar TP SCH (08:00)
[2017-04-25] MEDS: nicotine 14mg patch - 24hr TD SCH (08:03)
[2017-04-25] MEDS: digoxin 250mcg (0.25mg) tablet PO SCH (08:03)
[2017-04-25] MEDS: LACTOBACILLUS RHAMNOSUS GG 15 billion unit sprinkle caps PO SCH (08:03)
[2017-04-25] MEDS: pantoprazole 40mg Tablet.DR PO SCH (08:03)
[2017-04-25] MEDS: hydrocortisone sod succ/PF 100mg/2ml inj. IV SCH ×2 (08:03→20:46)
[2017-04-25] MEDS: enoxaparin 40mg/0.4ml syringe SUBCUT SCH (08:04)
[2017-04-25] MEDS: spironolactone 25 MG tablet PO SCH (08:07)
[2017-04-25] MEDS: insulin Lispro (HumaLOG) vial - multi-dose SQ SCH ×3 (09:26→19:27)
[2017-04-25 09:55] LABS: BASOPHILS % (AUTO) 0 % (0-1); EOSINOPHILS # (AUTO) 0.4 X10'3 (0-0.9); EOSINOPHILS % (AUTO) 1.9 % (0-6); HEMATOCRIT 32.2 % (42.0-52.0); LYMPHOCYTES # (AUTO) 1.3 X10'3 (1.1-4.8); LYMPHOCYTES % (AUTO) 6.5 % (21-51); MEAN CORPUSCULAR HEMOGLOBIN 30.9 PG (27.0-31.0); MEAN CORPUSCULAR HGB CONC 34.1 % (33.0-36.5); MEAN CORPUSCULAR VOLUME 90.5 FL (78-98); MEAN PLATELET VOLUME 7.7 FL (7.4-10.4); MONOCYTES # (AUTO) 0.4 X10'3 (0-0.9); MONOCYTES % (AUTO) 2.2 % (2-12); NEUTROPHILS # (AUTO) 17.3 X10'3 (1.8-7.7); NEUTROPHILS % (AUTO) 89.4 % (42-75); PLATELET COUNT 848 X10'3 (140-440); RED BLOOD COUNT 3.56 X10'6 (4.70-6.10); RED CELL DISTRIBUTION WIDTH 15.5 % (11.5-14.5); WHITE BLOOD COUNT 19.4 X10'3 (4.5-11.0)
[2017-04-25 10:17] LABS: LARGE PLATELETS FEW; PLATELET ESTIMATE INCREASED
[2017-04-25 10:30] VITALS: BP 127/71
[2017-04-25 11:25] LABS: ALANINE AMINOTRANSFERASE 20 U/L (12-78); ALBUMIN 1.3 G/DL (3.4-5.0); ALBUMIN/GLOBULIN RATIO 0.3 (1.1-1.5); ALKALINE PHOSPHATASE 123 IU/L (46-116); ANION GAP 7 (8-16); ASPARTATE AMINO TRANSFERASE 12 U/L (10-37); BILIRUBIN,TOTAL 0.1 MG/DL (0.1-1.0); BLOOD UREA NITROGEN 21 MG/DL (7-18); CALCIUM 7.8 MG/DL (8.5-10.1); CHLORIDE 101 MMOL/L (99-107); GLUCOSE 286 MG/DL (70-104); MAGNESIUM 1.6 MG/DL (1.5-2.4); PHOSPHORUS 2.7 MG/DL (2.3-4.5); POTASSIUM 3.1 MMOL/L (3.5-5.1); SODIUM 141 MMOL/L (135-145); TOTAL CARBON DIOXIDE 33.5 MMOL/L (24-32); TOTAL PROTEIN 5.4 G/DL (6.4-8.2); eGFR > 90 ML/MIN
[2017-04-25] MEDS ORDERED: magnesium Cl slow-release 64mg tablet PO PRN (15:55)
[2017-04-25] MEDS ORDERED: magnesium 4gm in 100ml NS 100 ML IV PRN (15:55)
[2017-04-25] MEDS ORDERED: magnesium 2GM in 50ml NS 50 ML IV PRN (15:55)
[2017-04-25] MEDS ORDERED: potassium Cl 40MEQ/NS 500ml 500 ML IV PRN ×2 (15:55)
[2017-04-25] MEDS ORDERED: potassium Cl 20 mEq SR tablet PO PRN ×2 (15:55)
[2017-04-25 18:00] VITALS: BP 116/62
[2017-04-25] MEDS: insulin glargine (Lantus) pen - multi-dose SQ SCH ×2 (21:00→21:57)
[2017-04-26] MEDS: piperacillin/tazo 3.375gm/50ml 50 ML IV SCH ×2 (01:39→07:32)
[2017-04-26 05:34] LABS: BASOPHILS % (AUTO) 0 % (0-1); EOSINOPHILS # (AUTO) 0.2 X10'3 (0-0.9); EOSINOPHILS % (AUTO) 1.5 % (0-6); HEMATOCRIT 25.3 % (42.0-52.0); HEMOGLOBIN 8.6 g/dl (14.0-17.9); LYMPHOCYTES # (AUTO) 0.8 X10'3 (1.1-4.8); LYMPHOCYTES % (AUTO) 5.3 % (21-51); MEAN CORPUSCULAR HEMOGLOBIN 30.5 PG (27.0-31.0); MEAN CORPUSCULAR VOLUME 89.8 FL (78-98); MEAN PLATELET VOLUME 7.5 FL (7.4-10.4); MONOCYTES # (AUTO) 0.4 X10'3 (0-0.9); MONOCYTES % (AUTO) 2.3 % (2-12); NEUTROPHILS # (AUTO) 14.6 X10'3 (1.8-7.7); NEUTROPHILS % (AUTO) 90.9 % (42-75); PLATELET COUNT 651 X10'3 (140-440); RED BLOOD COUNT 2.81 X10'6 (4.70-6.10); RED CELL DISTRIBUTION WIDTH 15.9 % (11.5-14.5)
[2017-04-26 06:00] VITALS: BP 124/65
[2017-04-26 06:20] LABS: ALANINE AMINOTRANSFERASE 18 U/L (12-78); ALBUMIN 1.3 G/DL (3.4-5.0); ALBUMIN/GLOBULIN RATIO 0.3 (1.1-1.5); ALKALINE PHOSPHATASE 109 IU/L (46-116); ANION GAP 5 (8-16); ASPARTATE AMINO TRANSFERASE 10 U/L (10-37); BILIRUBIN,TOTAL 0.2 MG/DL (0.1-1.0); BLOOD UREA NITROGEN 23 MG/DL (7-18); CALCIUM 7.9 MG/DL (8.5-10.1); CHLORIDE 105 MMOL/L (99-107); GLUCOSE 113 MG/DL (70-104); MAGNESIUM 1.6 MG/DL (1.5-2.4); PREALBUMIN 14.1 MG/DL (19-36); SODIUM 144 MMOL/L (135-145); TOTAL CARBON DIOXIDE 34.5 MMOL/L (24-32); TOTAL PROTEIN 5.1 G/DL (6.4-8.2); eGFR > 90 ML/MIN
[2017-04-26] MEDS: pantoprazole 40mg Tablet.DR PO SCH (07:32)
[2017-04-26] MEDS: nicotine 14mg patch - 24hr TD SCH (07:32)
[2017-04-26] MEDS: digoxin 250mcg (0.25mg) tablet PO SCH (07:44)
[2017-04-26] MEDS: potassium Cl 20 mEq SR tablet PO SCH ×3 (07:47→17:58)
[2017-04-26] MEDS: HYDROcodone/acetaminophen 10/325mg tab PO PRN (07:58)
[2017-04-26] MEDS: insulin Lispro (HumaLOG) vial - multi-dose SQ SCH ×3 (09:44→19:02)
[2017-04-26] MEDS ORDERED: cefazolin 1gm/NS 100mL 100 ML IV SCH (09:55)
[2017-04-26] MEDS: vancomycin/NS 1 GM ADD-VANTAGE 250 ML IV SCH ×2 (09:56)
[2017-04-26] MEDS: spironolactone 25 MG tablet PO SCH (09:56)
[2017-04-26] MEDS: LACTOBACILLUS RHAMNOSUS GG 15 billion unit sprinkle caps PO SCH (09:56)
[2017-04-26] MEDS: hydrocortisone sod succ/PF 100mg/2ml inj. IV SCH (09:56)
[2017-04-26 10:00] VITALS: BP 129/74
[2017-04-26] MEDS: cefazolin/dext.iso 2gm/50ml 50 ML IV SCH ×2 (12:03→17:47)
[2017-04-26] MEDS: silver sulfadiazine cream 400gm jar TP SCH (12:09)
[2017-04-26 13:59] LABS: OCCULT BLOOD STOOL NEGATIVE (Neg)
[2017-04-26] MEDS ORDERED: VANCOMYCIN LEVEL IV ONE (15:30)
[2017-04-26 16:55] LABS: HEMATOCRIT 27.6 % (42.0-52.0); HEMOGLOBIN 9.2 g/dl (14.0-17.9); MEAN CORPUSCULAR HEMOGLOBIN 29.8 PG (27.0-31.0); MEAN CORPUSCULAR HGB CONC 33.4 % (33.0-36.5); MEAN CORPUSCULAR VOLUME 89.5 FL (78-98); MEAN PLATELET VOLUME 7.2 FL (7.4-10.4); PLATELET COUNT 750 X10'3 (140-440); RED BLOOD COUNT 3.08 X10'6 (4.70-6.10); RED CELL DISTRIBUTION WIDTH 16.1 % (11.5-14.5); WHITE BLOOD COUNT 16.2 X10'3 (4.5-11.0)
[2017-04-26 18:30] VITALS: BP 124/69
[2017-04-26] MEDS: insulin glargine (Lantus) pen - multi-dose SQ SCH ×2 (21:00→22:48)
[2017-04-26] MEDS: dextrose ORAL solution 15 GM/59 ML bottle PO PRN (21:09)
[2017-04-26] MEDS ORDERED: magnesium Cl slow-release 64mg tablet PO PRN (21:30)
[2017-04-26] MEDS ORDERED: magnesium 4gm in 100ml NS 100 ML IV PRN (21:30)
[2017-04-26] MEDS ORDERED: potassium Cl 20 mEq SR tablet PO PRN ×2 (21:30)
[2017-04-26] MEDS ORDERED: potassium Cl 40MEQ/NS 500ml 500 ML IV PRN ×2 (21:30)
[2017-04-26] MEDS ORDERED: magnesium 2GM in 50ml NS 50 ML IV PRN (21:30)
[2017-04-26 22:00] VITALS: BP 109/57
[2017-04-27] MEDS: cefazolin/dext.iso 2gm/50ml 50 ML IV SCH ×3 (00:05→16:16)
[2017-04-27 00:41] LABS: HEMATOCRIT 28.7 % (42.0-52.0); HEMOGLOBIN 9.4 g/dl (14.0-17.9); MEAN CORPUSCULAR HEMOGLOBIN 29.7 PG (27.0-31.0); MEAN CORPUSCULAR HGB CONC 32.6 % (33.0-36.5); MEAN CORPUSCULAR VOLUME 91.1 FL (78-98); MEAN PLATELET VOLUME 7.6 FL (7.4-10.4); PLATELET COUNT 724 X10'3 (140-440); RED BLOOD COUNT 3.15 X10'6 (4.70-6.10); RED CELL DISTRIBUTION WIDTH 16.3 % (11.5-14.5); WHITE BLOOD COUNT 15.9 X10'3 (4.5-11.0)
[2017-04-27 06:00] VITALS: BP 125/79
[2017-04-27 06:26] LABS: MAGNESIUM 1.6 MG/DL (1.5-2.4); POTASSIUM 4.1 MMOL/L (3.5-5.1)
[2017-04-27] MEDS: K and/or MAG REPLACEMENT MC SCH (08:00)
[2017-04-27] MEDS: LACTOBACILLUS RHAMNOSUS GG 15 billion unit sprinkle caps PO SCH (08:34)
[2017-04-27] MEDS: digoxin 250mcg (0.25mg) tablet PO SCH (08:35)
[2017-04-27] MEDS: pantoprazole 40mg Tablet.DR PO SCH (08:35)
[2017-04-27] MEDS: nicotine 14mg patch - 24hr TD SCH (08:36)
[2017-04-27] MEDS: spironolactone 25 MG tablet PO SCH (08:36)
[2017-04-27] MEDS: insulin Lispro (HumaLOG) vial - multi-dose SQ SCH ×3 (09:56→19:33)
[2017-04-27 10:00] VITALS: BP 123/66
[2017-04-27] MEDS: silver sulfadiazine cream 400gm jar TP SCH (16:17)
[2017-04-27] MEDS ORDERED: morphine 5 MG/ML injection IV PRN (16:22)
[2017-04-27 18:00] VITALS: BP 115/70
[2017-04-27] MEDS ORDERED: insulin glargine (Lantus) pen - multi-dose SQ SCH (21:00)
[2017-04-27 22:00] VITALS: BP 124/69
[2017-04-28] MEDS: cefazolin/dext.iso 2gm/50ml 50 ML IV SCH ×3 (00:25→16:57)
[2017-04-28 06:00] VITALS: BP 123/71
[2017-04-28] MEDS: nicotine 14mg patch - 24hr TD SCH (07:33)
[2017-04-28] MEDS: LACTOBACILLUS RHAMNOSUS GG 15 billion unit sprinkle caps PO SCH (07:34)
[2017-04-28] MEDS: pantoprazole 40mg Tablet.DR PO SCH (07:34)
[2017-04-28] MEDS: spironolactone 25 MG tablet PO SCH (07:34)
[2017-04-28] MEDS: digoxin 250mcg (0.25mg) tablet PO SCH (07:36)
[2017-04-28] MEDS: K and/or MAG REPLACEMENT MC SCH (08:00)
[2017-04-28] MEDS: HYDROcodone/acetaminophen 10/325mg tab PO PRN (08:12)
[2017-04-28 10:00] VITALS: BP 110/50
[2017-04-28] MEDS: insulin Lispro (HumaLOG) vial - multi-dose SQ SCH ×3 (10:05→18:26)
[2017-04-28] MEDS: silver sulfadiazine cream 400gm jar TP SCH (16:00)
== END 2017-04-28 18:40 | DRG 853 ==
LOC: ER 16:45 → ED HOLD 19:19 → PACU 20:17 → CICU 2S 22:18 → ORTHO 4S 04-22 10:55
PROVIDERS: ADMIT Hospitalist; ATTEND Internal Medicine Critical Care Medicine
PROC: 0K9C0ZZ Drainage of Right Hand Muscle, Open Approach (ICD-10-PCS; 2017-04-14)
PROC: 5A1955Z Respiratory Ventilation, Greater than 96 Consecutive Hours (ICD-10-PCS; 2017-04-14)
PROC: BP2N1ZZ Computerized Tomography (CT Scan) of Right Hand using Low Osmolar Contrast (ICD-10-PCS; 2017-04-14)
PROC: 0X6Q0Z0 Detachment at Right Middle Finger, Complete, Open Approach (ICD-10-PCS; principal; 2017-04-14 20:11)
PROC: BQ2S1ZZ Computerized Tomography (CT Scan) of Left Lower Extremity using Low Osmolar Contrast (ICD-10-PCS; 2017-04-21)
PROC: BQ2R1ZZ Computerized Tomography (CT Scan) of Right Lower Extremity using Low Osmolar Contrast (ICD-10-PCS; 2017-04-21)
PROC: 0X6J0ZC Detachment at Right Hand, Partial 3rd Ray, Open Approach (ICD-10-PCS; 2017-04-24)
PROC: 02HV33Z Insertion of Infusion Device into Superior Vena Cava, Percutaneous Approach (ICD-10-PCS; 2017-04-26)
PROC: B548ZZA Ultrasonography of Superior Vena Cava, Guidance (ICD-10-PCS; 2017-04-26)
DX: A40.9 Streptococcal sepsis, unspecified (principal); E10.10 Type 1 diabetes mellitus with ketoacidosis without coma; R65.21 Severe sepsis with septic shock; G93.40 Encephalopathy, unspecified; E43 Unspecified severe protein-calorie malnutrition; N17.9 Acute kidney failure, unspecified; E10.52 Type 1 diabetes mellitus with diabetic peripheral angiopathy with gangrene; I47.1 Supraventricular tachycardia; L03.116 Cellulitis of left lower limb; L02.511 Cutaneous abscess of right hand; L03.113 Cellulitis of right upper limb; L97.929 Non-pressure chronic ulcer of unspecified part of left lower leg with unspecified severity; M86.8X4 Other osteomyelitis, hand; A49.01 Methicillin susceptible Staphylococcus aureus infection, unspecified site; E83.39 Other disorders of phosphorus metabolism; D64.9 Anemia, unspecified; E10.622 Type 1 diabetes mellitus with other skin ulcer; E10.69 Type 1 diabetes mellitus with other specified complication; E83.42 Hypomagnesemia; E83.51 Hypocalcemia; E87.6 Hypokalemia; F10.10 Alcohol abuse, uncomplicated; F15.10 Other stimulant abuse, uncomplicated; F17.200 Nicotine dependence, unspecified, uncomplicated; Z51.5 Encounter for palliative care; Z66 Do not resuscitate; Z59.0 Homelessness; Z91.19 Patient's noncompliance with other medical treatment and regimen; Z68.23 Body mass index [BMI] 23.0-23.9, adult; Z79.4 Long term (current) use of insulin; Z79.899 Other long term (current) drug therapy; Z87.11 Personal history of peptic ulcer disease; Z82.5 Family history of asthma and other chronic lower respiratory diseases; Z71.41 Alcohol abuse counseling and surveillance of alcoholic; Z71.51 Drug abuse counseling and surveillance of drug abuser; Z71.6 Tobacco abuse counseling
CPT/HCPCS: 36415; 36569; 36600; 71045; 73090; 73130; 73201; 73701; 76937; 80047; 80048; 80053; 80162; 80202; 82272; 82803; 82948; 83036; 83605; 83735; 84100; 84132; 84134; 84145; 85018; 85025; 85027; 85379; 85384; 85610; 85730; 86703; 86885; 86900; 86901; 87040; 87070; 87075; 87077; 87186; 88305; 93005; 93308; 93312; 93325; 93922; 93925; 93931; 94002; 94003; 94760; 96365; 96366; 96372; 97110; 97116; 97162; 97530; 99291; 99292; A4649; A6209; A6212; A6213; A6222; A6223; A6253; A6258; A6446; A6449; A7000; C9113; J0690; J0692; J0696; J1650; J1720; J1815; J2001; J2060; J2175; J2250; J2270; J2543; J2704; J2765; J3010; J3370; J3475; J3480; J3486; J3490; J7030; J7060; J7070; J7120; Q9967

== ENCOUNTER 2017-11-25 22:39 | Emergency (ER) | payer MEDICARE, MEDICAID, OTHER ==
[~2017-11-25] VITALS: Ht 177.8 cm; Wt 55.9 kg
[~2017-11-25 22:39] MED LIST changes: +DAPT500V2 IV; +METF500T PO; +MIRT15TA PO; +OMEP40CA37 PO; +SITA25TA3 PO; -SPIR25TA3 PO; +SULF1TAB49 PO; +TRAZ-218 PO
[2017-11-26 01:02] LABS: CLARITY,URINE CLEAR (Clear); COLOR,URINE YELLOW (Yellow); GLUCOSE, URINE >=1000 mg/dl (Neg); KETONES,URINE NEGATIVE (Neg); LEUKOCYTE ESTERASE ,URINE NEGATIVE (Neg); NITRITES, URINE NEGATIVE (Neg); OCCULT BLOOD,URINE NEGATIVE (Neg); PROTEIN,URINE NEGATIVE (Neg); UA COLLECTION TYPE CLN CATCH MIDSTREAM; UROBILINOGEN,URINE 0.2 E.U/dL (0.2-1.0)
[2017-11-26 01:12] LABS: INR 0.9 INR; PARTIAL THROMBOPLASTIN TIME 27 SECONDS (22-32); PROTHROMBIN TIME 9.6 SECONDS (9.0-12.0)
[2017-11-26 01:14] LABS: BASOPHILS % (AUTO) 0.2 % (0-1); EOSINOPHILS % (AUTO) 0.1 % (0-6); HEMATOCRIT 26.9 % (42.0-52.0); HEMOGLOBIN 9.2 g/dl (14.0-17.9); LYMPHOCYTES # (AUTO) 1.1 X10'3 (1.1-4.8); LYMPHOCYTES % (AUTO) 5.1 % (21-51); MEAN CORPUSCULAR HGB CONC 34.3 % (33.0-36.5); MEAN CORPUSCULAR VOLUME 87.6 FL (78-98); MEAN PLATELET VOLUME 7.5 FL (7.4-10.4); MONOCYTES # (AUTO) 0.8 X10'3 (0-0.9); MONOCYTES % (AUTO) 3.7 % (2-12); NEUTROPHILS # (AUTO) 18.8 X10'3 (1.8-7.7); NEUTROPHILS % (AUTO) 90.9 % (42-75); PLATELET COUNT 641 X10'3 (140-440); RED BLOOD COUNT 3.07 X10'6 (4.70-6.10); RED CELL DISTRIBUTION WIDTH 13.9 % (11.5-14.5); WHITE BLOOD COUNT 20.7 X10'3 (4.5-11.0)
[2017-11-26 01:14] LABS: BACTERIA,URINE FEW /HPF (Neg); RBC,URINE 0-2 /HPF (0-2); SQUAMOUS EPITHELIAL CELL,UR FEW /LPF (FEW); WBC,URINE 0-4 /HPF (0-4)
[2017-11-26] MEDS ORDERED: insulin regular, human 10 units/0.1 ml syringe IV ONE (01:25)
[2017-11-26] MEDS ORDERED: normal saline 1000ml 1,000 ML IV ONE (01:25)
[2017-11-26 01:27] LABS: ALANINE AMINOTRANSFERASE 19 U/L (12-78); ALBUMIN 1.6 G/DL (3.4-5.0); ALBUMIN/GLOBULIN RATIO 0.3 (1.1-1.5); ALKALINE PHOSPHATASE 113 IU/L (46-116); ANION GAP 6 (8-16); ASPARTATE AMINO TRANSFERASE 12 U/L (10-37); BILIRUBIN,TOTAL 0.1 MG/DL (0.1-1.0); BLOOD UREA NITROGEN 23 MG/DL (7-18); BUN/CREATININE RATIO 21.7 (5.4-32.0); CHLORIDE 96 MMOL/L (99-107); CREATININE 1.06 MG/DL (0.60-1.10); MAGNESIUM 1.6 MG/DL (1.5-2.4); POTASSIUM 4.4 MMOL/L (3.5-5.1); SODIUM 131 MMOL/L (135-145); TOTAL CARBON DIOXIDE 28.9 MMOL/L (24-32); TOTAL PROTEIN 6.9 G/DL (6.4-8.2); eGFR 73 ML/MIN
[2017-11-26 01:37] LABS: GLUCOSE 472 MG/DL (70-104)
[2017-11-26] MEDS ORDERED: vancomycin inj 1,000 MG in normal saline 250ml IV soln 250 ML IV ONE (01:45)
[2017-11-26] MEDS ORDERED: vancomycin/NS 1 GM ADD-VANTAGE 250 ML X 1 DOSE IV ONE ×2 (01:55→02:20)
[2017-11-26 02:38] VITALS: BP 101/70
[2017-11-26] MEDS ORDERED: morphine 4 MG/ML inj SYRINge IV ONE (03:10)
== END 2017-11-26 04:15 | disposition home or self-care (01) ==
LOC: ER 22:39
DX: A41.9 Sepsis, unspecified organism (principal); L02.213 Cutaneous abscess of chest wall; E11.65 Type 2 diabetes mellitus with hyperglycemia; I50.9 Heart failure, unspecified; F15.90 Other stimulant use, unspecified, uncomplicated; Z98.890 Other specified postprocedural states; Z79.4 Long term (current) use of insulin; Z79.899 Other long term (current) drug therapy; Z86.14 Personal history of Methicillin resistant Staphylococcus aureus infection
CPT/HCPCS: 10061; 36415; 71045; 80053; 81001; 82948; 83605; 83735; 84145; 85025; 85610; 85730; 87040; 87070; 87077; 87186; 93005; 96361; 96365; 96366; 96375; 99285; A6253; A6266; J1815; J2270; J3370; J7030

== ENCOUNTER 2018-04-19 07:12 | Inpatient (IN) | payer MEDICARE, OTHER, MEDICAID | END 2018-04-24 14:38 | disposition E | LOC: CICU 2S 04-22 13:30 → ER 07:12 → ED HOLD 09:08 → PCU 3S 16:51 → CICU 2S 04-21 12:45 | DX: A41.9 Sepsis, unspecified organism (principal); E11.10 Type 2 diabetes mellitus with ketoacidosis without coma; J18.1 Lobar pneumonia, unspecified organism; E43 Unspecified severe protein-calorie malnutrition; J96.01 Acute respiratory failure with hypoxia; Z68.1 Body mass index [BMI] 19.9 or less, adult; E87.6 Hypokalemia ==